=== PATIENT | male | born 1950 | race Caucasian/White ===

== ENCOUNTER 2018-06-12 17:25 | Emergency (ER) | payer MEDICARE, OTHER ==
[2018-06-12] MEDS ORDERED: MAGNESIUM SULFATE 2 GM, MULTIVITAMINS 10 ML, THIAMINE 100 MG, FOLIC ACID 1 MG in SOD CH... IV (17:33)
[2018-06-12 18:07] LABS: ADD MAN DIFF? NO
[2018-06-12] MEDS: LORAZEPAM 2 MG INJ IV (18:07)
[2018-06-12 18:09] LABS: BASOPHIL # 0.1 10^3/ul (0.0-0.1); BASOPHILS % 0.9 % (0.0-2.0); EOSINOPHILS # 0.1 10^3/ul (0.0-0.5); EOSINOPHILS % 1.1 % (0.0-7.0); HEMATOCRIT 46.6 % (42.0-52.0); LYMPHOCYTES # 3.5 10^3/ul (0.8-2.9); LYMPHOCYTES % 35.2 % (15.0-51.0); MEAN CORPUSCULAR HEMOGLOBIN 27.5 pg (29.0-33.0); MEAN CORPUSCULAR HGB CONC 32.2 g/dl (32.0-37.0); MEAN CORPUSCULAR VOLUME 85.3 fl (82.0-101.0); MEAN PLATELET VOLUME 10.2 fl (7.4-10.4); MONOCYTE # 0.5 10^3/ul (0.3-0.9); NEUTROPHIL # 5.7 10^3/ul (1.6-7.5); NEUTROPHILS % 57.6 % (39.0-77.0); PLATELET COUNT 301 10^3/UL (140-415); RED BLOOD COUNT 5.46 10^6/ul (4.70-6.10); RED CELL DISTRIBUTION WIDTH 13.8 % (11.5-14.5)
[2018-06-12 18:09] LABS: WHITE BLOOD COUNT 9.8 10^3/ul (4.8-10.8)
[2018-06-12] MEDS: SOD CHLORIDE 0.9% 1,000 ML IV (18:13)
[2018-06-12 18:25] LABS: INR 0.89; PROTIME 12.1 Sec (11.9-14.9); PT RATIO 0.9
[2018-06-12 18:26] LABS: PARTIAL THROMBOPLASTIN TIME 27.4 Sec (23.0-35.0)
[2018-06-12 18:29] LABS: ALANINE AMINOTRANSFERASE 19 IU/L (13-69); ALBUMIN 4.6 g/dl (3.3-4.9); ALBUMIN/GLOBULIN RATIO 1.39; ALKALINE PHOSPHATASE 108 IU/L (42-121); ANION GAP 12 (5-13); ASPARTATE AMINO TRANSFERASE 28 IU/L (15-46); BILIRUBIN,INDIRECT 0.2 mg/dl (0-1.1); BILIRUBIN,TOTAL 0.2 mg/dl (0.2-1.3); BLOOD UREA NITROGEN 15 mg/dl (7-20); CARBON DIOXIDE 26 mmol/L (21-31); CHLORIDE 111 mmol/L (97-110); CREATININE 0.85 mg/dl (0.61-1.24); Estimated GFR > 60 mL/min (>60); GLUCOSE 82 mg/dl (70-220); POTASSIUM 3.7 mmol/L (3.5-5.1); SODIUM 149 mmol/L (135-144); TOTAL PROTEIN 7.9 g/dl (6.1-8.1)
[2018-06-12 18:30] LABS: SALICYLATE < 1.0 mg/dl (5.0-30.0)
[2018-06-12] MEDS: HALOPERIDOL 5 MG INJ IV (18:51)
[2018-06-12 19:01] LABS: ACETAMINOPHEN < 10.0 ug/ml (10.0-30.0)
[2018-06-12] MEDS: LORAZEPAM 2 MG INJ IM (20:02)
== END 2018-06-12 22:00 | disposition home or self-care (01) ==
LOC: E/R 17:25
DX: F10.920 Alcohol use, unspecified with intoxication, uncomplicated (principal); J44.9 Chronic obstructive pulmonary disease, unspecified; G92 Toxic encephalopathy; T51.94XA Toxic effect of unspecified alcohol, undetermined, initial encounter; Z85.028 Personal history of other malignant neoplasm of stomach
CPT/HCPCS: 70450; 80053; 80307; 85025; 85610; 85730; 96372; 96374; 96375; 99285-25